=== PATIENT | male | born 1945 | race Caucasian/White ===

== ENCOUNTER → 2016-08-23 | Outpatient (CLI) | payer OTHER ==
[~2016-08-23] VITALS: Ht 177.8 cm; Wt 142.8 kg
[~2016-08-23] MED LIST: ALDACTONE25 MG PO; ALLOPURINOL300 MG PO; BUMETANIDE2 MG PO; CALCIUM ACETAT667 MG PO; CITALOPRAM HBR20 MG PO; ERGOCALCIF50000 UNIT PO; FISH OIL 1,0001 EAC7 PO; FLOMAX0.4 MG PO; FOLBIC,FOLTX1 DOSE PO; GABAPENTIN300 MG PO; HYDRALAZINE HCL10 MG PO; LEVEMIR FL100 UNIT/1 SC; LEVEMIR100 UNIT/2 SC; LEXAPRO20 MG PO; LIPITOR80 MG PO; LISINOPRIL10 MG PO; LITE COAT ASPI325 M1 PO; LO-DOSE ASPIRIN81 M1 PO; METOPROLOL SUC100 MG PO; NOVOLOG MI100 UNIT/M SC; PRILOSEC20 MG PO; PROBENECID500 MG PO; SPIRONOLACTONE25 MG PO; TOPROL XL200 MG PO; TRADJENTA5 MG PO; ULORIC80 MG PO; VENTOLIN HFA18 GM IH; ZESTORETIC 20-1 EAC1 PO; ZETIA10 MG PO
[2016-08-23 08:15] LABS: ANION GAP 7 MEQ/L (2-14); CHLORIDE 105 MEQ/L (99-109); POTASSIUM 4.4 MEQ/L (3.7-5.4); SAMPLE HEMOLYSIS CHECK 0; SAMPLE ICTERIC CHECK 0; SAMPLE LIPEMIA CHECK 0; SODIUM 142 MEQ/L (136-147)
[2016-08-23 08:21] LABS: GFR ESTIMATE (CALCULATED) 19 mL/min/; GLUCOSE 147 mg/dL (70-99); UREA NITROGEN (BUN) 47 mg/dL (9-23)
[2016-08-23 08:45] LABS: POINT-OF-CARE METER ID UU13113694
[2016-08-23 11:16] LABS: POINT-OF-CARE METER ID UU13113819
== END | disposition home or self-care (01) ==
LOC: AMB 07:21
PROVIDERS: Internal Medicine Gastroenterology
PROC: 0DB68ZX Excision of Stomach, Via Natural or Artificial Opening Endoscopic, Diagnostic (ICD-10-PCS; principal; 2016-08-23)
PROC: 0DBP8ZX Excision of Rectum, Via Natural or Artificial Opening Endoscopic, Diagnostic (ICD-10-PCS; principal; 2016-08-23)
PROC: 0DB38ZX Excision of Lower Esophagus, Via Natural or Artificial Opening Endoscopic, Diagnostic (ICD-10-PCS; principal; 2016-08-23)
PROC: 0DBK8ZX Excision of Ascending Colon, Via Natural or Artificial Opening Endoscopic, Diagnostic (ICD-10-PCS; principal; 2016-08-23)
DX: K22.70 Barrett's esophagus without dysplasia (principal); K62.1 Rectal polyp; D12.2 Benign neoplasm of ascending colon; K57.30 Diverticulosis of large intestine without perforation or abscess without bleeding; K29.70 Gastritis, unspecified, without bleeding; K21.9 Gastro-esophageal reflux disease without esophagitis; N19 Unspecified kidney failure; E11.9 Type 2 diabetes mellitus without complications; I10 Essential (primary) hypertension; R94.31 Abnormal electrocardiogram [ECG] [EKG]
CPT/HCPCS: 80048; 82948; 88305; 88342 TC; 93005; C1726; J0330; J2250; J2405; J2710; J3010

== ENCOUNTER → 2017-10-10 | Outpatient (CLI) | payer OTHER ==
[~2017-10-10] VITALS: Ht 179.1 cm; Wt 136.4 kg
[~2017-10-10] MED LIST changes: +ALLEGRA60 MG PO; +APRESOLINE25 MG PO; +CALCITRIOL0.25 MCG PO; +FOLBIC TABLET1 EACH PO; +FOLIC ACID1 MG PO; -HYDRALAZINE HCL10 MG PO; +PLAVIX75 MG PO; +VAYACOG CAPSUL1 EACH PO
== END | disposition home or self-care (01) ==
LOC: AMB 09:15
PROVIDERS: Internal Medicine Gastroenterology
DX: Z12.11 Encounter for screening for malignant neoplasm of colon (principal); K57.30 Diverticulosis of large intestine without perforation or abscess without bleeding; D12.3 Benign neoplasm of transverse colon; D12.4 Benign neoplasm of descending colon; Z86.010 Personal history of colon polyps; K64.4 Residual hemorrhoidal skin tags; K22.70 Barrett's esophagus without dysplasia
CPT/HCPCS: 82948; 88305